=== PATIENT | female | born 1965 | race Caucasian/White ===

== ENCOUNTER → 2022-06-25 | Outpatient (CLI) | payer OTHER, SELFPAY ==
[2022-06-25 10:32] LABS: Absolute Neutrophil Count 3.6 X10^3/uL (2.0-7.7); Basophil# 0.08 X10^3/uL; Eosinophil# 0.42 X10^3/uL; Eosinophils% 5.2 % (0-5); Hematocrit 47.2 % (37-47); Hemoglobin 15.1 g/dL (12.0-15.0); Lymphocyte % 43.7 % (19-41); Mean Corpuscular Hgb 29.7 pg (27.0-32.0); Mean Corpuscular Volume 92.9 fL (81-99); Mean Platelet Vol. 10.3 fl (6.2-12.0); Monocyte# 0.39 X10^3/uL; Monocyte% 4.9 % (0-10); NRBC Flagged by Analyzer 0 % (0-5); Platelet Count 251 K/mm3 (150-450); RBC Distribution Width CV 13.9 % (11.6-14.6); RBC Distribution Width SD 47.6 fl (35.1-43.9); Red Blood Count 5.08 M/mm3 (4.2-5.4)
[2022-06-25 11:03] LABS: ALB/GLOB Ratio 1.1 RATIO (0.9-2.4); AST(SGOT) 16 U/L (15-37); Alanine Aminotransfer ALT/SGPT 26 U/L (13-56); Albumin, Serum 4.1 g/dL (3.2-5.0); Alkaline Phosphatase 97 U/L (45-117); Anion Gap 5 (5-15); BUN 19 mg/dL (7-18); BUN/Creat Ratio 21.1 RATIO (10-20); Calcium,Total 9.7 mg/dL (8.5-10.1); Chloride 106 mmol/L (98-107); Cholesterol 254 mg/dL (200); EST Glomerular Filtration Rate 68 mL/min (>60); Est Glom Filt Rate - Afr Amer 83 mL/min (>60); Globulin 3.6 g/dL (2.2-4.2); Glucose 92 mg/dL (74-106); High Density Lipoprotein 81 mg/dL; Potassium 4.5 mmol/L (3.5-5.1); Protein, Total 7.7 g/dL (6.4-8.2); Sodium Level 139 mmol/L (136-145); Triglycerides 147 mg/dL; Very Low Density Lipoprotein 29 mg/dL (5-40)
== END | disposition home or self-care (01) ==
LOC: LAB 10:00
PROVIDERS: PCP Internal Medicine; Visit Provider Internal Medicine
DX: R07.89 Other chest pain (principal); Z86.79 Personal history of other diseases of the circulatory system
CPT/HCPCS: 36415; 80053; 80061; 85025

== ENCOUNTER → 2022-06-29 | Outpatient (CLI) | payer OTHER, SELFPAY ==
[2022-06-29 16:03] LABS: Thyroid Stim Hormone (TSH) 1.31 uIU/mL (0.358-3.74)
== END | disposition home or self-care (01) ==
PROVIDERS: PCP Internal Medicine; Visit Provider Internal Medicine Cardiovascular Disease
DX: I10 Essential (primary) hypertension (principal)
CPT/HCPCS: 36415; 84443

== ENCOUNTER → 2022-07-22 | Outpatient (CLI) | payer OTHER, SELFPAY ==
--- NOTE | 2022-07-22 17:41 | MRI_ITS ---
EXAM: MR HEAD WITHOUT INTRAVENOUS CONTRAST CLINICAL INDICATION: cognitive decline TECHNIQUE: Multiplanar and multisequence MR images of the brain were obtained without intravenous contrast. This report was created using [employer] report generation technology. COMPARISON: None. FINDINGS: BRAIN AND EXTRA-AXIAL SPACES: Unremarkable. No intra- or extra-axial hemorrhage. No evidence of acute infarct. No intracranial mass or mass effect. There is preservation of the snyder/white matter interface. Posterior fossa structures are unremarkable. Ventricles are appropriate for age. No hydrocephalus. Basal cisterns are patent. SELLA: Unremarkable. Normal sella turcica, pituitary gland, infundibular stalk, optic chiasm and hypothalamus. AUDITORY SYSTEM: Unremarkable. The internal auditory canals are patent. BONES/JOINTS: Unremarkable. No discrete lytic or blastic abnormalities. SINUSES: Unremarkable as visualized. Clear. MASTOID AIR CELLS: Unremarkable as visualized. Clear. ORBITS: Unremarkable as visualized. Both globes, extraocular muscles, optic nerves and retrobulbar fat appear unremarkable. VASCULATURE: Unremarkable as visualized. Normal flow voids in the major intracranial circulation. MRI/Brain without Contrast IMPRESSION: Negative MRI brain without intravenous contrast. Electronically Signed: Jeff Martinez MD at 23:37 EDT ,
== END | disposition home or self-care (01) ==
LOC: MRI 17:41
PROVIDERS: PCP Internal Medicine; Referring Provider Internal Medicine; Visit Provider Internal Medicine
DX: R41.89 Other symptoms and signs involving cognitive functions and awareness (principal)
CPT/HCPCS: 70551

== ENCOUNTER → 2022-08-04 | Outpatient (CLI) | payer OTHER, SELFPAY | END | disposition home or self-care (01) | LOC: SL 13:05 | PROVIDERS: PCP Internal Medicine; Visit Provider Internal Medicine | DX: G47.10 Hypersomnia, unspecified (principal); R29.818 Other symptoms and signs involving the nervous system | CPT/HCPCS: 95806 ==

== ENCOUNTER → 2022-12-20 | Outpatient (CLI) | payer OTHER, SELFPAY ==
[2022-12-27 15:08] LABS: HPV APTIMA, High Risk Negative (Negative)
== END | disposition home or self-care (01) ==
LOC: OPBI 16:03
PROVIDERS: PCP Internal Medicine; Referring Provider Obstetrics & Gynecology; Visit Provider Obstetrics & Gynecology
DX: Z12.4 Encounter for screening for malignant neoplasm of cervix (principal)
CPT/HCPCS: 87624; 88175; G0145

== ENCOUNTER 2023-07-02 15:35 | Emergency (ER) | payer OTHER, SELFPAY ==
[2023-07-02 15:36] VITALS: BP 168/99; PULSE 116; RESP 20; TEMP 35.8; O2SAT 95
--- NOTE | 2023-07-02 15:52 | EKG12_ITS ---
Test Reason : Blood Pressure : / mmHG Vent. Rate : 089 BPM Atrial Rate : 089 BPM P-R Int : 144 ms QRS Dur : 086 ms QT Int : 376 ms P-R-T Axes : 039 011 028 degrees QTc Int : 457 ms Normal sinus rhythm Nonspecific ST abnormality Abnormal ECG Confirmed by Mark Mondragon ([id number]), market editor KERWIN RATLIFF ([id number]) on 07/04/2023 7:13:38 AM Referred By: Confirmed By:Mark Mondragon
--- NOTE | 2023-07-02 15:53 | EX.ED.DYSGE1 ---
HPI History of Present Illness Chief Complaint: Syncope Detail of Chief Complaint: Dizziness, near syncope Narrative Narrative: Patient presents secondary to lightheadedness and near syncope. She states she was shopping at a local [employer] today when she suddenly felt lightheaded and as if she may pass out. She felt that her heart was racing somewhat. She states her symptoms feel better now but not completely back to normal. She does have a history of SVT with prior ablation in 2013. She is currently on diltiazem. She states has been eating and drinking well recently with no recent changes to her medications or diet. 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) SOB (shortness of breath) SVT (supraventricular tachycardia) Home Medications naproxen 500 mg tablet,delayed release (EC-Naproxen) 500 mg PO BID PRN pain #14 tabs 06/29/22 [Rx Last Taken Unknown] atorvastatin 10 mg tablet (Lipitor) 10 mg PO DAILY #30 tabs 09/26/22 [Rx Last Taken Unknown] diltiazem HCl 180 mg capsule,extended release 24 hr 180 mg PO BID this is a dose increase #60 caps 10/20/22 [Rx Last Taken Unknown] ondansetron HCl 8 mg tablet 8 mg PO Q8H PRN nausea and vomiting #20 tabs 11/25/22 [Rx Last Taken Unknown] Allergy/AdvReac Type Severity Reaction Status Date / Time metoprolol AdvReac Intermediate Very Verified 07/02/23 15:36 fatigued on low dose of ER Family History Father Myocardial infarction Hypertension Heart disease Mother Anxiety Hypertension Grandfather Heart disease Hypertension Cancer LUNG Diabetes High cholesterol Kidney disease Grandmother Bowel disease Colon cancer Diabetes Daughter Anxiety Surgical History History of radiofrequency ablation procedure for cardiac arrhythmia (~03/18/14) Hx of dilation and curettage Hx of tubal ligation Social History household members: spouse current occupational status: employed current occupation: daycare Smoking Status: Former smoker quit date: 05/25/12 pack-years: 8 Electronic Cigarette Use: not used alcohol intake: current alcohol intake frequency: a few times a month substance use type: does not use caffeine: Yes (rarely) what type of physical activity do you participate in: none seatbelt use: always do you feel safe at home: Yes additional social history: -Alok FOX ROS ED Constitutional Constitutional ED: Denies chills or fever(s) Eyes Eyes: Denies change in vision or discharge from eye(s) ENT ENT ED: Denies discharge from eye(s), rhinorrhea or sore throat Cardiovascular Cardiovascular: Reports racing heartbeat; Denies chest pain Respiratory/Chest Respiratory/Chest: Denies cough or dyspnea Gastrointestinal Gastrointestinal: Denies abdominal pain, nausea or vomiting Genitourinary Genitourinary ED: Denies dysuria Musculoskeletal Musculoskeletal: Denies back pain or extremity pain Integumentary Denies Abrasions or rash Neurologic Neurologic: Denies headache(s) or weakness Psychiatric Psychiatric: Denies anxiety or depression Allergic/Immunologic Allergic/Immunologic ED: Denies lip swelling or urticaria EXAM Physical Exam Const Vital Signs: 07/02/23 15:36 07/02/23 16:11 07/02/23 16:14 Temperature 96.4 F L Temperature Source Temporal Pulse Rate 116 H 94 Respiratory Rate 20 H 18 Respiratory Pattern Normal Blood Pressure 168/99 H 138/76 H Blood Pressure Mean 122 96 Pulse Ox 95 96 Oxygen Delivery Method Room Air Room Air 07/02/23 18:10 Temperature Temperature Source Pulse Rate 69 Respiratory Rate 16 Respiratory Pattern Blood Pressure 113/75 Blood Pressure Mean 87 Pulse Ox 96 Oxygen Delivery Method Room Air Positive well nourished and well developed General Appearance ED: well developed HEENT Reports moist mucous membranes Eyes EOMs intact bilaterally Chest Wall inspection of chest normal and palpation of chest normal Resp normal respiratory effort and clear to auscultation bilaterally Cardio regular rate and regular rhythm GI non-tender Palpation: soft Extremity normal to inspection Neuro oriented x3 and no sensory deficits noted Motor Exam: strength 5/5 throughout Psych mental status grossly normal Skin no rashes or lesions noted MDM MDM MDM Narrative Medical decision making narrative: Patient placed on air sampling and monitoring. IV line initiated. IV fluids given. Labwork obtained to evaluate for leukocytosis, anemia, and electrolyte derangement. EKG obtained to evaluate for cardiac arrhythmia/ischemia. Chest x-ray obtained to evaluate for acute lung pathology, cardiac size, or mediastinal abnormality. History & Record Review Discussion w/independent historian: Patient Lab Data Attestation: I reviewed the patient's lab results. Labs: Laboratory Results - last 24 hr 07/02/23 07/02/23 16:03 18:10 WBC 9.5 RBC 4.74 Hgb 14.1 Hct 42.7 MCV 90.1 MCH 29.7 MCHC 33.0 RDW Std Deviation 47.6 H RDW Coeff of Nanda 14.4 Plt Count 258 MPV 11.2 Immature Gran % (Auto) 0.400 Neut % (Auto) 48.8 Lymph % (Auto) 40.2 Meeker % (Auto) 4.8 Eos % (Auto) 5.0 Baso % (Auto) 0.8 Absolute Neuts (auto) 4.6 Absolute Lymphs (auto) 3.83 Nucleated RBC % 0 D-Dimer Quant (PE/DVT) 0.39 Sodium 145 Potassium 3.7 Chloride 112 H Carbon Dioxide 24.0 Anion Gap 9 BUN 16 Creatinine 0.77 Estim Creat Clear Calc 81.16 Est GFR (MDRD) Af Amer 99 Est GFR (MDRD) Non-Af 82 BUN/Creatinine Ratio 20.8 H Glucose 116 H Calcium 8.6 Troponin I High Sens 5 6 Radiography Chest X-Ray - ED: 1 View, Read by ED Physician, Normal, Heart, Lungs and Mediastinum Diagnostic Testing: Clinical Impression(s) from Imaging Studies Chest X-Ray 07/02/23 16:07 IMPRESSION: Mild chronic interstitial thickening in the right lower lobe. No acute disease. Electronically Signed: Diallo Alejandro MD at 16:27 EDT , EKG Initial EKG: Attestation: I personally reviewed and interpreted this EKG as follows: Interpretation: Sinus Rhythm (Sinus at 89 with 1/[address] depression in V4 and V5. No acute ST elevation.) Treatment and Re-Evaluation :: CBC was normal white count 9.5 with a hemoglobin of 14.1. Chemistry studies unremarkable. Initial troponin is 5 with 2-hour repeat troponin of 6. D-dimer is also normal at 0.39. EKG is sinus rhythm with no acute ischemia. Chest x-ray per my interpretation was no acute abnormalities. Radiology interpretation reviewed and agrees. On repeat evaluation patient feels improved. She is comfortable with our workup and will follow-up with her primary care physician. Return instructions given. Discharge Plan Triage Chief Complaint: Syncope ED Provider: Kaylah Marrero Dx/Rx/DC Orders Clinical Impression: Near syncope Instructions: ED Near-Fainting, Uncertain Cause Prescriptions: No Action naproxen [EC-Naproxen] 500 mg tablet,delayed release (DR/EC) 500 mg PO BID PRN (Reason: pain) Qty: 14 0RF ondansetron HCl 8 mg tablet 8 mg PO Q8H PRN (Reason: nausea and vomiting) Qty: 20 0RF atorvastatin [Lipitor] 10 mg tablet 10 mg PO DAILY Qty: 30 1RF diltiazem HCl 180 mg capsule,extended release 24hr 180 mg PO BID Qty: 60 11RF Primary Care Provider: Tessa Travis Referrals: Tessa Travis MD [Primary Care Provider] - 5-7 Days
--- OUTSIDE RECORDS SUMMARY | 2023-07-02 16:04 | XMS RPT_ITS | CCD ---
Author Name Unknown Address [address] [place] [address] Organization [facility] Care Team Providers Care Engagement Executive Name Role Phone Carole BAUMAN, Mayur Bassett Primary Care Provider [phone] Medications Completed/Discontinued Medications Medication Drug Class(es) Dates Sig (Normalized) Sig (Original) [id number] 200 actuat albuterol 0.09 mg/actuat metered dose inhaler (1 source) beta2-Adrenergic Agonist Start: 01-18-2021 take 2 puff(s) by inhalation every four hours as needed for wheezing albuterol HFA (VENTOLIN HFA) 90 mcg/actuation inhaler Indications: Chronic cough Inhale 2 Puffs as instructed every 4 hours as needed for wheezing/shortnes s of breath. 1 Each 3 01/18/2021 Active Problems Active Problems Problem Classification Problem Date Documented Da te Episodic/Chronic Anxiety disorders (1 source) Anxiety; Translations: [Anxiety disorder, unspecified] Onset: 01-24-2017 11-09-2017 Chronic Other female genital disorders (1 source) Vaginal bleeding; Translations: [Abnormal uterine and vaginal bleeding, unspecified] Onset: 07-16-2015 03-27-2017 Chronic Other screening for suspected conditions (not mental disorders or infectious disease) (2 sources) Patient encounter status; Translations: [Encounter for screening mammogram for malignant neoplasm of breast] Onset: 02-02-2018 Episodic Past or Other Problems Problem Classification Problem Date Documented Da te Episodic/Chronic Other circulatory disease (1 source) History of supraventricular tachycardia; Translations: [Personal history of other diseases of the circulatory system] Onset: 7 02-02-2018 Episodic Other diseases of kidney and ureters (1 source) Cyst of kidney; Translations: [Cyst of kidney, acquired] Onset: 8 10-11-2017 Episodic Other gastrointestinal disorders (1 source) Pelvic mass; Translations: [Intra-abdominal and pelvic swelling, mass and lump, unspecified site] Onset: 8 02-02-2018 Episodic Residual codes; unclassified (1 source) Family history of ischemic heart disease; Translations: [Family history of ischemic heart disease and other diseases of the circulatory system] Onset: 4 02-02-2018 Episodic Screening and history of mental health and substance abuse codes (1 source) Ex-smoker; Translations: [Personal history of nicotine dependence] Onset: 4 04-19-2021 Episodic Syncope (1 source) Near syncope; Translations: [Syncope and collapse] Onset: 7 01-24-2017 Episodic Encounters Encounter Date Encounter Type Care Provider Facility Start: 10-20-2021 ambulatory Mayur hughes MD Work Phone: [facility] Start: 02-02-2018 Patient encounter status Sam Chan MD Work Phone: [facility] Work Phone: Procedures Date Procedure Procedure Detail Performing Clinician Start: 02-20-2018 Mammography Mayur lua MD Work Phone: Start: 02-02-2018 Adult depression scr eening assessment Mayur Chan MD Work Phone: Plan of Treatment Date Care Activity Detail Author Start: 03-13-2024 Urine microalbumin profile DTAP,TDAP,TD (2 - Td or Tdap) [facility] Start: 01-20-2024 DIABETES SCREEN DIABETES SCREEN [facility] Start: 12-23-2021 Influenza vaccination INFLUENZA (#1) [facility] Start: 07-01-2020 HPV TESTING HPV TESTING [facility] Start: 07-01-2020 PAP TESTING PAP TESTING [facility] Start: 02-20-2019 Mammography MAMMOGRAM [facility] Start: 02-02-2019 Adult depression screening assessment DEPRESSION SCREENING [facility] Start: 2014 SHINGRIX VACCINE (1 of 2) SHINGRIX VACCINE (1 of 2) [facility] Start: 2009 COLOGUARD (FIT-DNA) COLOGUARD (FIT-DNA) [facility] Start: 2009 Colonoscopy COLONOSCOPY [facility] Start: 2009 COLORECTAL CANCER SCREENING COLORECTAL CANCER SCREENING [facility] Start: [address] COLONOGRAPHY [facility] Start: 2009 FECAL OCCULT BLOOD FECAL OCCULT BLOOD [facility] Start: 2009 LIPID SCREEN LIPID SCREEN [facility] Start: 2009 SIGMOIDOSCOPY SIGMOIDOSCOPY [facility] Start: 1982 HEPATITIS C SCREENING HEPATITIS C SCREENING [facility] Start: 1982 HIV SCREENING HIV SCREENING [facility] Start: 06-06-1965 COVID-19 VACCINE (#1) COVID-19 VACCINE (#1) [facility] End: 11-19-2022 Screening mammography bi 2-view breast inc cad ZACK SCREENING Radiology Routine Encounter for screening mammogram for breast cancer 1 Occurrences starting 10/20/2021 until 11/19/2022 [facility] Work Phone: Immunizations Immunization Date Immunization Notes Care Provider Refugio ryder 02-02-2018 influenza, injectabl e, quadrivalent, contains preservative Mayur Chan MD Work Phone: [facility] 01-24-2017 influenza, injectabl e, quadrivalent, contains preservative Mayur Chan MD Work Phone: [facility] 03-13-2014 influenza, seasonal, injectable Mayur Chan MD Work Phone: [facility] 03-13-2014 tetanus toxoid, redu blair diphtheria toxoid, and acellular pertussis vaccine, adsorbed Mayur Chan MD Work Phone: [facility] Social History Date Type Detail Facility Start: 12-19-2013 Tobacco smoking stat us [facility] Ex-smoker [facility] End: 07-26-2012 History of tobacco use Current smoker [facility] End: 07-26-2012 History of tobacco use Cigarette Smoker [facility] Start: 12-19-2013 End: 01-18-2021 Cigarettes smoked current (pack per day) - Reported 0.25 [facility] Start: 12-19-2013 Tobacco use and exposure Smoke less tobacco non-user [facility] Start: 01-18-2021 Alcohol intake Current drinke r of alcohol (finding) [facility] Start: 07-16-2015 Tobacco Comment quit 5-6 yrs ago [facility] Start: 1965 Sex Assigned At Not on file [facility] Medical Equipment Procedure Code Equipment Code Equipment Origin al Text Equipment Identifier Dates Jeff Iud - [id number] Start: 07-21-2015 Clinical Note 09-28-2022 Note Date & Type Note Facility 09-28-2022 Note Patient Outreach (IN [facility]) KAYLI GRIFFIN ([id number]) 1965 F Date Time Provider Department 09/28/22 MAYUR CHAN During your visit today, we recorded the following information about you: Allergies As of Date: 09/28/2022 (No Known Allergies) Date Reviewed: 01/18/2021 Reviewed by: Estefania Bhatt APRN.PROCESS LEAD - Fully Assessed Visit Diagnosis:Encounter for screening mammogram for breast cancer [Z12.31] Order(s):[facility] SCREENING [[id number]] Order #: [id number] FUTURE Prescriptions as of 10/03/2022 - omeprazole (PRILOSEC) 40 mg capsule Take 1 capsule by mouth once daily. - albuterol HFA (VENTOLIN HFA) 90 mcg/actuation inhaler Inhale 2 Puffs as instructed every 4 hours as needed for wheezing/shortness of breath. 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 *03/14/2014 07/16/2015 Vaginal bleeding [N93.9] 07/16/2015 Anxiety [F41.9] 01/24/2017 History of supraventricular tachycardia [Z86.79]01/24/2017 Near syncope [R55] 01/24/2017 Renal cyst [N28.1] 10/11/2017 Pelvic mass in female [R19.00] 10/30/2017 Family history of ischemic heart disease [Z82.4*12/19/2013 Well adult exam [Z00.00] 02/02/2018 Encounter for screening mammogram for breast ca*02/02/2018 Encounter Status:Closed by NEFTALI COBBUSEEnma on 10/03/22 [facility] Clinical Note 10-20-2021 Note Date & Type Note Facility 10-20-2021 Note Patient Outreach (IN [facility]) KAYLI GRIFFIN ([id number]) 1965 F Date Time Provider Department 10/20/21 MAYUR CHAN During your visit today, we recorded the following information about you: Allergies As of Date: 10/20/2021 (No Known Allergies) Date Reviewed: 01/18/2021 Reviewed by: Estefania Bhatt APRN.PROCESS LEAD - Fully Assessed Visit Diagnosis:Encounter for screening mammogram for breast cancer [Z12.31] Order(s):[facility] SCREENING [[id number]] Order #: [id number] FUTURE Prescriptions as of 10/25/2021 - omeprazole (PRILOSEC) 40 mg capsule Take 1 capsule by mouth once daily. - albuterol HFA (VENTOLIN HFA) 90 mcg/actuation inhaler Inhale 2 Puffs as instructed every 4 hours as needed for wheezing/shortness of breath. 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 *03/14/2014 07/16/2015 Vaginal bleeding [N93.9] 07/16/2015 Anxiety [F41.9] 01/24/2017 History of supraventricular tachycardia [Z86.79]01/24/2017 Near syncope [R55] 01/24/2017 Renal cyst [N28.1] 10/11/2017 Pelvic mass in female [R19.00] 10/30/2017 Family history of ischemic heart disease [Z82.4*12/19/2013 Well adult exam [Z00.00] 02/02/2018 Encounter for screening mammogram for breast ca*02/02/2018 Encounter Status:Closed by [employer] PRODUSER on 10/25/21 [facility] History of Past illness Narrative 03-14-2014 Note Date & Type Note Facility documented as of this encounter (statuses as of 10/25/2021) [facility] Evaluation note Note Date & Type Note Facility documented in this encounter [facility] Reason for referral (narrative) Diagnostic Procedure Only (Routine) - Pending Review Note Date & Type Note Facility Referral ID Status Reason Start Date Expiration Date Visits Requested Visits Authorized [id number] Pending Review Auto-Generat ed Referral 10/20/2021 11/19/2022 1 1 [facility] Advance Directives No Advanced Directives Records FoundDocuments on File Type Date Recorded Patient Disk Grinder Expl anation Advance Directive(s) 11/09/2017 12:31 PM Advance Directive(s) 07/21/2015 11:22 AM Advance Directive(s) 07/15/2015 10:01 AM Summary Purpose Family History No Family History Records Found Additional Source Comments Source Comments (unrecognize d section and content) In the event this informatio n is protected by the Federal Confidentiality of Alcohol and Drug Abuse Patient Records regulations: The Federal rules restrict any use of the information to criminally investigate or prosecute any alcohol or drug abuse patient.[facility] Care Teams (unrecognized sec tion and content) INFORMATION SOURCE (unrecogn ized section and content) FOR RECORDS PERTAINING TO PATIENTS WHO ARE OR HAVE BEEN ENROLLED IN A CHEMICAL DEPENDENCY/SUBSTANCEABUSE PROGRAM, SOME INFORMATION MAY BE OMITTED. This clinical summary was aggregated from multiple sources. Caution should be exercised in using it in the provision of clinical care. This summary normalizes information from multiple sources, and as a consequence, information in this document may materially change the coding, format and clinical context of patient data. In addition, data may be omitted in some cases. CLINICAL DECISIONS SHOULD BE BASED ON THE PRIMARY CLINICAL RECORDS. [facility] [employer] [facility]. provides no warranty or guarantee of the accuracy or completeness of information in this document.
[2023-07-02] MEDS: 0.9% Normal Saline (500mL Bag) 500 ML 1000 ML IV (16:05)
--- NOTE | 2023-07-02 16:07 | RAD_ITS ---
STUDY: X-RAY CHEST REASON FOR EXAM: Female, 57 years old. cp TECHNIQUE: AP portable COMPARISON: January 05, 2017 FINDINGS: Mild chronic interstitial thickening in the right lower lobe.. There is no demonstrated pleural abnormality. Normal size heart. Normal mediastinum and winifred. Normal visualized pulmonary arteries. Normal visualized aortic arch and descending thoracic aorta. Normal visualized thoracic spine. Normal visualized ribs, clavicles, and shoulders. There is no demonstrated abnormality of the visualized soft tissue structures of the upper abdomen. No significant change since prior exam RAD/Chest 1 View (Portable) IMPRESSION: Mild chronic interstitial thickening in the right lower lobe. No acute disease. Electronically Signed: Diallo Alejandro MD at 16:27 EDT ,
[2023-07-02 16:11] VITALS: BP 138/76; PULSE 94; RESP 18; O2SAT 96
[2023-07-02 16:23] LABS: Absolute Lymphocyte Count 3.83 X10^3/uL (0.83-4.51); Absolute Neutrophil Count 4.6 X10^3/uL (2.0-7.7); Basophil# 0.08 X10^3/uL; Basophil% 0.8 % (0-1); Eosinophil# 0.48 X10^3/uL; Hematocrit 42.7 % (37-47); Hemoglobin 14.1 g/dL (12.0-15.0); Lymphocyte # 3.83 X10^3/ul (0.83-4.51); Lymphocyte % 40.2 % (19-41); Mean Corpuscular Hgb 29.7 pg (27.0-32.0); Mean Corpuscular Volume 90.1 fL (81-99); Mean Platelet Vol. 11.2 fl (6.2-12.0); Monocyte# 0.46 X10^3/uL; Monocyte% 4.8 % (0-10); NRBC Flagged by Analyzer 0 % (0-5); Neutrophil # 4.64 X10^3/uL (2.7-7.7); Neutrophil % 48.8 % (47-70); Platelet Count 258 K/mm3 (150-450); RBC Distribution Width CV 14.4 % (11.6-14.6); RBC Distribution Width SD 47.6 fl (35.1-43.9); Red Blood Count 4.74 M/mm3 (4.2-5.4); White Blood Count 9.5 K/mm3 (4.4-11.0)
[2023-07-02 16:29] LABS: D-Dimer Quantitative (DVT/PE) 0.39 FEU/ug/m (0.27-0.49)
[2023-07-02] MEDS: 0.9% Normal Saline (1000mL) 1,000 ML 150 ML IV (16:41)
[2023-07-02 16:46] LABS: Anion Gap 9 (5-15); BUN 16 mg/dL (7-18); BUN/Creat Ratio 20.8 RATIO (10-20); Calcium,Total 8.6 mg/dL (8.5-10.1); Chloride 112 mmol/L (98-107); Creatinine, Serum 0.77 mg/dL (0.55-1.02); EST Glomerular Filtration Rate 82 mL/min (>60); Est Glom Filt Rate - Afr Amer 99 mL/min (>60); Estimated Creatinine Clearance 81.16 ml/min; Glucose 116 mg/dL (74-106); Potassium 3.7 mmol/L (3.5-5.1); Sodium Level 145 mmol/L (136-145); Troponin-I HS (w/2H Reflex) 5 pg/mL (3.0-54.0)
[2023-07-02 18:10] VITALS: BP 113/75; PULSE 69; RESP 16; O2SAT 96
[2023-07-02 18:11] LABS: Reflex Troponin-HS? (from REC) Y
[2023-07-02 18:32] LABS: Troponin-I HS 6 pg/mL (3.0-54.0)
[2023-07-02 19:11] VITALS: BP 122/84; PULSE 76; RESP 16; TEMP 36.6; O2SAT 96
== END 2023-07-02 19:14 | disposition home or self-care (01) ==
PROVIDERS: Emergency Provider Emergency Medicine; PCP Internal Medicine; Visit Provider Emergency Medicine
DX: R55 Syncope and collapse (principal); Z87.891 Personal history of nicotine dependence
CPT/HCPCS: 71045; 80048; 84484; 85025; 85379; 93005; 96360; 96361; 99284; J7030; J7040; A4216

== ENCOUNTER → 2023-11-01 | Outpatient (CLI) | payer OTHER, SELFPAY ==
[2023-11-01 21:44] LABS: Cholesterol 244 mg/dL (200); High Density Lipoprotein 80 mg/dL; Triglycerides 85 mg/dL; Very Low Density Lipoprotein 17 mg/dL (5-40)
== END | disposition home or self-care (01) ==
LOC: BIMLAB 10:27
PROVIDERS: PCP Internal Medicine; Referring Provider Internal Medicine; Visit Provider Internal Medicine
DX: E78.2 Mixed hyperlipidemia (principal)
CPT/HCPCS: 36415; 80061

== ENCOUNTER → 2024-08-02 | Outpatient (CLI) | payer OTHER, SELFPAY ==
[2024-08-02 08:39] LABS: Absolute Lymphocyte Count 3.58 X10^3/uL (0.83-4.51); Absolute Neutrophil Count 4.1 X10^3/uL (2.0-7.7); Basophil# 0.09 X10^3/uL; Eosinophil# 0.56 X10^3/uL; Eosinophils% 6.3 % (0-5); Hematocrit 43.7 % (37-47); Hemoglobin 14.2 g/dL (12.0-15.0); Lymphocyte # 3.58 X10^3/ul (0.83-4.51); Lymphocyte % 40.5 % (19-41); Mean Corp Hgb Conc 32.5 g/dL (32-36); Mean Corpuscular Hgb 29.6 pg (27.0-32.0); Mean Corpuscular Volume 91.2 fL (81-99); Mean Platelet Vol. 11.4 fl (6.2-12.0); Monocyte# 0.49 X10^3/uL; Monocyte% 5.5 % (0-10); NRBC Flagged by Analyzer 0 % (0-5); Neutrophil % 46.5 % (47-70); Platelet Count 267 K/mm3 (150-450); RBC Distribution Width CV 13.6 % (11.6-14.6); RBC Distribution Width SD 46.1 fl (35.1-43.9); Red Blood Count 4.79 M/mm3 (4.2-5.4); White Blood Count 8.8 K/mm3 (4.4-11.0)
[2024-08-02 09:53] LABS: ALB/GLOB Ratio 1.6 RATIO (0.9-2.4); AST(SGOT) 27 U/L (<=31); Alanine Aminotransfer ALT/SGPT 23 U/L (<=34); Albumin, Serum 4.5 g/dL (3.5-5.0); Alkaline Phosphatase 111 U/L (35-104); Anion Gap 13 (5-15); BUN 15 mg/dL (4-19); BUN/Creat Ratio 16.7 RATIO (10-20); Calcium,Total 9.7 mg/dL (7.6-11.0); Chloride 106 mmol/L (98-108); Cholesterol 178 mg/dL (<=200); Creatinine, Serum 0.89 mg/dL (0.70-1.20); EST Glomerular Filtration Rate 74 (>60); Globulin 2.8 g/dL (2.2-4.2); Glucose 91 mg/dL (70-99); High Density Lipoprotein 78 mg/dL; Low Density Lipoprotein Calc. 81 mg/dL; Potassium 4.1 mmol/L (3.3-5.1); Protein, Total 7.3 g/dL (5.9-8.4); Sodium Level 140 mmol/L (133-145); Total Bilirubin 0.58 mg/dL (0.00-1.30); Triglycerides 95 mg/dL; Very Low Density Lipoprotein 19 mg/dL (5-40); Vitamin B12 803 pg/mL (180-914); Vitamin D,25 Hydroxy 36.1 ng/mL (30-100); cholesterol:hdl ratio screen 2.28
== END | disposition home or self-care (01) ==
PROVIDERS: PCP Internal Medicine; Referring Provider Internal Medicine; Visit Provider Internal Medicine
DX: I10 Essential (primary) hypertension (principal); R41.89 Other symptoms and signs involving cognitive functions and awareness
CPT/HCPCS: 36415; 80053; 80061; 82306; 82607; 85025

== ENCOUNTER 2024-10-29 09:16 | Emergency (ER) | payer OTHER, SELFPAY ==
[2024-10-29] VITALS (9 sets, daily range): BP systolic 125–174; BP diastolic 78–92; PULSE 64–98; RESP 14–25; TEMP 36.3–36.6; O2SAT 91–100; BMI 27.5
--- NOTE | 2024-10-29 10:19 | EKG12_ITS ---
Test Reason : HTN Blood Pressure : */* mmHG Vent. Rate : 76 BPM Atrial Rate : 76 BPM P-R Int : 172 ms QRS Dur : 88 ms QT Int : 386 ms P-R-T Axes : 50 20 35 degrees QTcB Int : 434 ms Normal sinus rhythm Nonspecific ST abnormality Abnormal ECG Confirmed by DANNY BAUMAN, NYLA ([id number]), newspaper copy editor KERWIN RATLIFF ([id number]) on 10/31/2024 6:39:26 AM Referred By: Confirmed By: NYLA DELGADO MD
--- NOTE | 2024-10-29 10:38 | EX.ED.DYSGE1 ---
HPI History of Present Illness Chief Complaint: Hypertension Informant: patient Narrative Narrative: Patient is a 58-year-old female with history of hypertension, heart murmur, proximal SVT and anxiety presenting with dizziness and mild headache. She has had headache for the past few days that is frontal in nature. States that while she is drinking plenty of fluids she has been very busy. She denies associated vision changes and does not report any photophobia. She states this morning she felt lightheaded which triggered her to check her blood pressure and it was 180 /(above 100). She checked her blood sugar as well and it was okay. She came in for further evaluation. She also notes that for about 2 hours she had intermittent chest pressure over the left side of her chest. She states it would last for couple seconds at a time but kept coming and going over 2 hours. Denies any radiation of this discomfort. She denies any pleuritic component. Denies any shortness of breath. Did have some associated nausea. She comments that her eye was twitching. She denies any vomiting or urinary symptoms. Denies any fever or chills. Denies any abdominal pain. States that she feels better and would like to go home but came in for further evaluation. 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 Former smoker SVT (supraventricular tachycardia) Essential hypertension Ovarian tumor (benign) Giant cell tumor tendon History of back problems Heart murmur Heart disease Home Medications ?Medication ?Instructions ?Recorded ?Last Taken ?Type atorvastatin 10 mg tablet (Lipitor) 10 mg PO DAILY #90 tabs 07/23/24 Unknown Rx diltiazem HCl 180 mg 180 mg PO .daily this is a dose 07/23/24 Unknown Rx capsule,extended release 24 hr increase #90 caps provitalize PO BID 07/23/24 Unknown History Allergy/AdvReac Type Severity Reaction Status Date / Time metoprolol AdvReac Intermediate Very Verified 10/29/24 09:18 fatigued on low dose of ER Family History Father Myocardial infarction Hypertension Heart disease Mother Anxiety Hypertension Grandfather Heart disease Hypertension Cancer LUNG Diabetes High cholesterol Kidney disease Grandmother Bowel disease Colon cancer Diabetes Daughter Anxiety Surgical History Hx of dilation and curettage Hx of tubal ligation History of radiofrequency ablation procedure for cardiac arrhythmia (~03/18/14) Social History household members: spouse current occupational status: employed current occupation: [employer] Smoking Status: Former smoker quit date: 05/25/12 pack-years: 8 Electronic Cigarette Use: not used alcohol intake: current alcohol intake frequency: a few times a month substance use type: does not use caffeine: Yes (rarely) what type of physical activity do you participate in: none seatbelt use: always do you feel safe at home: Yes additional social history: -Alok [employer] ED Constitutional Constitutional ED: Reports other Details: Lightheaded ; Denies chills or fever(s) Eyes Eyes: Denies change in vision Cardiovascular Cardiovascular: Reports chest pain; Denies palpitations Respiratory/Chest Respiratory/Chest: Denies cough or dyspnea Gastrointestinal Gastrointestinal: Reports nausea; Denies abdominal pain or vomiting Musculoskeletal Musculoskeletal: Denies arthralgias or myalgias Integumentary Denies rash Neurologic Neurologic: Reports headache(s); Denies paresthesias or weakness Psychiatric Psychiatric: Reports anxiety EXAM Physical Exam Const Vital Signs: 10/29/24 09:17 10/29/24 09:24 10/29/24 09:30 Temperature 97.4 F L Temperature Source Temporal Pulse Rate 98 83 Respiratory Rate 16 25 H Respiratory Effort Normal Non-Labored Respiratory Pattern Normal Blood Pressure 174/92 H 155/88 H Blood Pressure Mean 119 110 Pulse Ox 100 93 Oxygen Delivery Method Room Air Room Air 10/29/24 10:21 10/29/24 11:00 10/29/24 11:30 Temperature Temperature Source Pulse Rate 78 69 65 Respiratory Rate 14 16 21 H Respiratory Effort Respiratory Pattern Blood Pressure 157/85 H 149/84 H 128/86 H Blood Pressure Mean 109 105 100 Pulse Ox 97 93 95 Oxygen Delivery Method Room Air 10/29/24 12:00 10/29/24 13:00 Temperature Temperature Source Pulse Rate 73 64 Respiratory Rate 16 19 H Respiratory Effort Respiratory Pattern Blood Pressure 125/79 H 131/86 H Blood Pressure Mean 94 101 Pulse Ox 94 91 Oxygen Delivery Method Positive well nourished and well developed General Appearance ED: well developed and NAD HEENT Reports moist mucous membranes Eyes PERRL Neck supple and no JVD Chest Wall inspection of chest normal and palpation of chest normal Resp normal respiratory effort and clear to auscultation bilaterally Cardio regular rate, regular rhythm and no murmurs GI normal to inspection, nondistended, normoactive bowel sounds and non-tender Extremity normal to inspection Extremity Narrative: 2+ radial DP pulses General Extremety ED: Negative for edema or tenderness General Extremity: Negative for edema Neuro oriented x3, CN's II-XII intact bilaterally and no sensory deficits noted Sensorium / Orientation: alert Motor Exam: strength 5/5 throughout; Negative for general weakness Psych mental status grossly normal Skin no rashes or lesions noted and no wounds MDM MDM MDM Narrative Medical decision making narrative: Patient evaluated for headache for couple days, lightheadedness and episode of chest discomfort. Upon arrival patient's blood pressure was elevated but it normalized without any intervention in the emergency room. She clinically is well-appearing. She is not clinically. Dehydrated. She states she does not want any IV fluids if she drinks lots of fluids. Differential is includes ACS, PERRI, electrolyte abnormality, infection, pneumonia, hypertensive emergency/accelerated hypertension and hypoglycemia. She is not short of breath and is not tachycardic or hypoxic and I do not think she requires a PE study at this time especially as she is currently completely asymptomatic. Chest x-ray viewed by myself as well as radiology does not show any acute process. Workup is largely normal and reassuring. She does have 15 protein in her urine but her kidney function is normal. High-sensitivity troponin normal x 2 and EKG is nonischemic. Patient is comfortable discharge home. Counseled the exact cause her symptoms are not clear at this time I feel she is safe to be discharged home. She is given return precautions. Courage follow with her primary care doctor. Lab Data Attestation: I reviewed the patient's lab results. Labs: Laboratory Results - last 24 hr 10/29/24 10/29/24 10/29/24 10:38 11:05 12:33 WBC 9.2 RBC 4.64 Hgb 13.6 Hct 41.3 MCV 89.0 MCH 29.3 MCHC 32.9 RDW Std Deviation 44.6 H RDW Coeff of Nanda 13.7 Plt Count 222 MPV 11.1 Immature Gran % (Auto) 0.300 Neut % (Auto) 66.0 Lymph % (Auto) 24.2 [place] % (Auto) 4.1 Eos % (Auto) 4.5 Baso % (Auto) 0.9 Absolute Neuts (auto) 6.1 Absolute Lymphs (auto) 2.22 Nucleated RBC % 0 Sodium 140 Potassium 3.9 Chloride 108 Carbon Dioxide 21.8 Anion Gap 10 BUN 15 Creatinine 0.76 Estim Creat Clear Calc 77.93 Est GFR (MDRD) Non-Af 90 BUN/Creatinine Ratio 19.2 Glucose 95 Calcium 9.3 Troponin T High Sens < 6 Troponin T Hi Sens 2 Hr < 6 Urine Color Yellow Urine Clarity Clear Urine pH 6.0 Ur Specific Chapman 1.010 Urine Protein 15 H Urine Glucose (UA) Normal Urine Ketones Negative Urine Occult Blood Negative Urine Nitrite Negative Urine Bilirubin Negative Urine Urobilinogen Normal Ur Leukocyte Esterase 100 H Urine RBC 0 SEEN Urine WBC 0 SEEN Ur Squamous Epith Cells 0-5 SEEN Urine Bacteria 0 SEEN Urine Mucus 0 SEEN Radiography Chest X-Ray - ED: 2 View, Read by ED Physician, Read by Radiologist and No Acute Disease Diagnostic Testing: Clinical Impression(s) from Imaging Studies Chest X-Ray 10/29/24 11:14 IMPRESSION: NO ACUTE FINDINGS. Reading Location: [place] [id number] Rhythm Strip Rhythm Strip: Sinus Rhythm Rate: 76 Ectopy: None EKG Initial EKG: Attestation: I personally reviewed and interpreted this EKG as follows: Interpretation: Sinus Rhythm and Non-Specific ST Changes Comments: normal sinus rhythm rate of 76 bpm Normal axis Normal intervals Normal ST segments with nonspecific changes Prior EKG tracings: available for review Prior: Unchanged Discharge Plan Triage Chief Complaint: Hypertension ED Provider: Kierra Sepulveda Dx/Rx/DC Orders Clinical Impression: Chest pain, Essential hypertension Instructions: ED Chest Pain, Uncertain Cause, ED Dizziness, Uncertain Cause Prescriptions: No Action provitalize PO BID atorvastatin [Lipitor] 10 mg tablet 10 mg PO DAILY Qty: 90 1RF diltiazem HCl 180 mg capsule,extended release 24hr 180 mg PO .daily Qty: 90 1RF Primary Care Provider: Tessa Travis Referrals: Tessa Travis MD [Primary Care Provider] - Print Language: [place] Disposition Disposition: Home, Self Care
[2024-10-29 11:00] LABS: Hematocrit 41.3 % (37-47); Hemoglobin 13.6 g/dL (12.0-15.0); Immature Granulocytes Count 0.030 X10^3/uL (0.0-0.0); Mean Corp Hgb Conc 32.9 g/dL (32-36); Mean Corpuscular Volume 89.0 fL (81-99); Mean Platelet Vol. 11.1 fl (6.2-12.0); NRBC Flagged by Analyzer 0 % (0-5); Platelet Count 222 K/mm3 (150-450); RBC Distribution Width CV 13.7 % (11.6-14.6); RBC Distribution Width SD 44.6 fl (35.1-43.9); Red Blood Count 4.64 M/mm3 (4.2-5.4); White Blood Count 9.2 K/mm3 (4.4-11.0)
[2024-10-29 11:10] LABS: Mucous, Urine 0 SEEN /hpf (<or=2+); Red Blood Cells-Urine 0 SEEN /hpf (0-5)
--- NOTE | 2024-10-29 11:14 | RAD_ITS ---
PROCEDURE: CHEST PA AND LATERAL 10/29/2024 REASON FOR EXAM: CHEST PAIN TECHNIQUE: CHEST PA AND LATERAL COMPARISON: Prior study dated July 02, 2023. FINDINGS: Hardware: EKG electrodes are seen. Heart: The heart size is normal. Mediastinum: The mediastinal contour is unremarkable. Lungs: The lungs are clear. Bones: The bones are unremarkable. RAD/Chest PA and Lateral IMPRESSION: NO ACUTE FINDINGS. Reading Location: [place] [id number]
[2024-10-29 11:15] LABS: Color, Urine Yellow (Yellow); Glucose, Dipstick Normal (Normal); Ketone-Dipstick Negative (Negative); Leukocyte Esterase-Dipstick 100 /ul (Negative); Nitrite-Dipstick Negative (Negative); Occult Blood-Urine Negative /ul (Negative); Protein-Dipstick 15 mg/dl (Negative); Specific Gravity, Urine 1.010 (1.002-1.030); Urine Bilirubin Dipstick Negative (Negative)
[2024-10-29 11:21] LABS: Squamous Epithelial Cells - UA 0-5 SEEN /hpf (5-10)
[2024-10-29 11:45] LABS: Anion Gap 10 (5-15); BUN 15 mg/dL (4-19); BUN/Creat Ratio 19.2 RATIO (10-20); Calcium,Total 9.3 mg/dL (7.6-11.0); Carbon Dioxide 21.8 mmol/L (21.0-32.0); Chloride 108 mmol/L (98-108); Estimated Creatinine Clearance 77.93 ml/min (50-250); Glucose 95 mg/dL (70-99); Potassium 3.9 mmol/L (3.3-5.1)
[2024-10-29 11:46] LABS: Troponin T High Sensitivity < 6 ng/L (<=14)
[2024-10-29 13:22] LABS: Troponin T High Sens 2 HR < 6 ng/L (<=14)
== END 2024-10-29 14:07 | disposition home or self-care (01) ==
PROVIDERS: Emergency Provider Emergency Medicine; PCP Internal Medicine; Visit Provider Emergency Medicine
DX: R07.9 Chest pain, unspecified (principal); I10 Essential (primary) hypertension; Z87.891 Personal history of nicotine dependence
CPT/HCPCS: 71046; 80048; 81001; 84484; 85025; 93005; 99284; A4216